=== PATIENT | male | born 1965 | race Hispanic/Latino ===

== ENCOUNTER → 2020-04-16 | Day surgery (SDC) | payer OTHER ==
[2020-04-13 15:39] LABS: BASOPHILS % 0.5 % (0.0-1.0); EOSINOPHILS # (AUTO) 0.2 (0.0-0.4); EOSINOPHILS % 2.5 % (0.0-6.0); HEMATOCRIT 46.1 % (38.2-49.6); HEMOGLOBIN 15.7 g/dL (14.0-18.0); LYMPHOCYTES # (AUTO) 2.6 (1.0-3.2); LYMPHOCYTES % 30.8 % (18.0-39.1); MEAN CORPUSCULAR HEMOGLOBIN 29.4 pg (28-32); MEAN CORPUSCULAR HGB CONC 34.1 g/dL (31-35); MEAN CORPUSCULAR VOLUME 86.3 fL (81-99); MONOCYTES # (AUTO) 0.9 (0.2-0.8); MONOCYTES % 10.5 % (4.4-11.3); NEUTROPHILS # (AUTO) 4.6 (2.1-6.9); NEUTROPHILS % 55.5 % (38.7-80.0); PLATELET COUNT 219 x10e3/uL (140-360); RED BLOOD COUNT 5.34 x10e6/uL (4.3-5.7); RED CELL DISTRIBUTION WIDTH 13.3 % (11.7-14.4)
[2020-04-13 15:59] LABS: ALANINE AMINOTRANSFERASE 24 IU/L (0-55); ALBUMIN 3.6 g/dL (3.5-5.0); ALBUMIN/GLOBULIN RATIO 1.1 (0.8-2.0); ALKALINE PHOSPHATASE 78 IU/L (40-150); ANION GAP 10.7 mmol/L (8-16); BLOOD UREA NITROGEN 14 mg/dL (7-26); BUN/CREATININE RATIO 17 (6-25); CALCIUM 8.8 mg/dL (8.4-10.2); CARBON DIOXIDE 27 mmol/L (22-29); CHLORIDE 105 mmol/L (98-107); CREATININE, SERUM 0.84 mg/dL (0.72-1.25); EST GLOMERULAR FILTRATION RATE > 60 ML/MIN (60-); GLUCOSE 103 mg/dL (74-118); POTASSIUM 3.7 mmol/L (3.5-5.1); SODIUM 139 mmol/L (136-145)
[~2020-04-16] MED LIST: ACETAMINOPHEN/CODEINE 300MG - 30MG TAB ONE; BUPIVACAINE 0.25% 30ML SDV ONE; CEFOXITIN 1GM/0.9% NS 50ML ML IV ONE; CEFOXITIN SOD 1 GM VIAL ONE; DEXAMETHASONE SOD PHOS INJ 4 MG/ML VIAL ONE; FENTANYL CITRATE/PF 100MCG/2 ML INJ ONE; GLYCOPYRROLATE INJ 0.2 MG/ML VIAL ONE; HYDRALAZINE HCL 20 MG/ML VIAL ONE; HYDROMORPHONE 1MG/1ML INJ ONE; KETOROLAC TROMETHAMINE 30 MG/ML VIAL ONE; LIDOCAINE HCL 2% LOCAL INJ 5 ML SDV VIAL INJ ONE; LOSARTAN POTAS100 MG PO; MIDAZOLAM HCL 2 MG/2 ML VIAL ONE; NEOSTIGMINE 1 MG/ML 10ML VIAL ONE; ONDANSETRON HCL INJ 2MG/ML 2ML 2 MG/ML VIAL ONE; PANTOPRAZOLE SO40 MG PO; PROPOFOL IV EMULSION 10 MG/ML 20 ML VIAL ONE; ROCURONIUM BROMIDE 10 MG/ML 5ML VIAL IV ONE; SEVOFLURANE INHAL SOLN 250 ML PEN BTL ONE
--- NOTE | 2020-04-16 11:02 | Operative Report ---
DATE OF PROCEDURE: 04/16/2020 SURGEON: Yasmani Rincon MD PREOPERATIVE DIAGNOSIS: Cholelithiasis, chronic cholecystitis. POSTOPERATIVE DIAGNOSIS: Cholelithiasis, chronic cholecystitis. PROCEDURE PERFORMED: Laparoscopic cholecystectomy. ANESTHESIA: General endotracheal. PROJECT SCIENTIST: LIZ Egan COMPLICATIONS: None. DRAINS: None. INDICATION AND FINDINGS: A 54-year-old male admitted for cholecystectomy because of a history of right upper quadrant pain associated with fatty food intolerance. Ultrasound revealed gallstones, normal ducts. Intraoperative findings were cholelithiasis, normal ducts. There was some thickening of the wall consistent with chronic cholecystitis. Liver chemistries were normal preoperatively and there was no history of jaundice. DESCRIPTION OF PROCEDURE: With the patient lying on the operative table in the supine position after administration of general anesthesia, he was prepped and draped for laparoscopic cholecystectomy. The procedure was begun by establishing the pneumoperitoneum in the right upper quadrant in the umbilical site after a stab wound was made in the location and saline drop test was performed. Pneumoperitoneum was insufflated to 15 mmHg, and then a 10/11 trocar placed in that location. The patient was rotated to the left with the head up, and then we placed a 10/11 trocar in the subxiphoid region. Finally, 2 lateral working ports 5 mm each were placed in the midclavicular line and right anterior axillary line. The gallbladder was then retracted cephalad using grasping forceps and the dissection was begun high in the neck of the gallbladder until we identified the cystic duct and the cystic artery. The cystic duct was then clipped distally twice and once proximally and transected. The same was performed with the cystic artery. Then, we took the gallbladder down from the liver bed using electrocautery dissection. We detached the gallbladder, placed it in an endobag and removed it through the umbilical port. We inspected the operative field. There was some minor tear on the left side of the gallbladder fossa that was cauterized, and then we placed a Surgicel to assure hemostasis. At the end of the procedure, we inspected the operative field for bile leak, bleeding, or any bowel injury and none was seen. The pneumoperitoneum was released under direct vision with the camera and no bleeding was seen. Then, we closed the wounds using 0 Vicryl for the umbilical port, 3-0 Vicryl for the subcutaneous tissue in that location as well as the subxiphoid port and the skin of all the ports was closed with hieu. Then, 0.25% Marcaine with epinephrine was given as local block at the end of the case. The patient tolerated the procedure well and taken to the recovery room in stable condition. MD AUBREY Marquez/MICHAEL /[id number]
[2020-04-16 12:15] VITALS: BP 141/85
== END | disposition home or self-care (01) ==
LOC: OR 07:21
PROVIDERS: ATTEND Surgery
DX: K80.10 Calculus of gallbladder with chronic cholecystitis without obstruction (principal); K82.8 Other specified diseases of gallbladder; K21.9 Gastro-esophageal reflux disease without esophagitis; I10 Essential (primary) hypertension; Z01.810 Encounter for preprocedural cardiovascular examination; Z01.812 Encounter for preprocedural laboratory examination; Z20.828 Contact with and (suspected) exposure to other viral communicable diseases
CPT/HCPCS: 36415; 47562; 80053; 85025; 88304; 93005; C1766; J0360; J0694; J1100; J1170; J1885; J2001; J2250; J2405; J2704; J2710; J3010; U0002